=== PATIENT | female | born 1985 | race Caucasian/White ===

== ENCOUNTER → 2020-10-03 13:09 | Outpatient (BNVA) | payer SELFPAY | DX: Z76.89 Persons encountering health services in other specified circumstances (principal) ==

== ENCOUNTER → 2021-09-10 13:53 | Outpatient (BNVA) | payer SELFPAY | DX: Z02.1 Encounter for pre-employment examination (principal) ==

== ENCOUNTER → 2021-10-07 12:47 | Outpatient (BNVA) | payer SELFPAY | DX: Z02.83 Encounter for blood-alcohol and blood-drug test (principal) ==